=== PATIENT | male | born 1980 | race Two or more races ===

== ENCOUNTER 2023-01-28 16:26 | Emergency (ER) | payer OTHER ==
[~2023-01-28] VITALS: Ht 167.6 cm; Wt 74.8 kg
[2023-01-29] MEDS ORDERED: NABUMETONE750 MG PO (19:16)
[2023-01-29] MEDS ORDERED: NORFLEX100MG PO (19:16)
[2023-01-29] MEDS ORDERED: CIPRO500 MG PO (23:36)
[2023-01-29] MEDS ORDERED: KETO10TA2 PO (23:36)
[2023-01-29] MEDS ORDERED: TAMS0.4C PO (23:36)
== END 2023-01-28 21:43 | disposition home or self-care (01) ==
LOC: ER 16:26
DX: R10.31 Right lower quadrant pain (principal); M54.89 Other dorsalgia

== ENCOUNTER 2023-01-29 18:44 | Emergency (ER) | payer OTHER ==
[~2023-01-29] VITALS: Ht 180.3 cm; Wt 88.5 kg
[2023-01-29] MEDS ORDERED: NORFLEX100MG PO (19:16)
[2023-01-29] MEDS ORDERED: NABUMETONE750 MG PO (19:16)
[2023-01-29] MEDS ORDERED: CIPRO500 MG PO (23:36)
[2023-01-29] MEDS ORDERED: KETO10TA2 PO (23:36)
[2023-01-29] MEDS ORDERED: TAMS0.4C PO (23:36)
== END 2023-01-30 00:18 | disposition home or self-care (01) ==
LOC: ER 18:44
DX: N13.5 Crossing vessel and stricture of ureter without hydronephrosis (principal); N39.0 Urinary tract infection, site not specified; N13.39 Other hydronephrosis; R10.31 Right lower quadrant pain; R10.2 Pelvic and perineal pain; I10 Essential (primary) hypertension